=== PATIENT | female | born 1990 | race American Indian/Alaskan Native ===

== ENCOUNTER 2021-03-21 11:39 | Emergency (ER) | payer SELFPAY ==
[2021-03-21 11:56] VITALS: BP 142/76
--- NOTE | 2021-03-21 12:55 | Emergency Department Report ---
ED General Adult HPI - General Chief complaint: Skin/Abscess/Foreign Body Stated complaint: POSSIBLE SWOLLEN LYMPH NODE UNDER RIGHT ARM Time Seen by Provider: 03/21/21 12:46 Source: patient Mode of arrival: Ambulatory Limitations: No Limitations - History of Present Illness Initial comments: 30-year-old female patient presents to the emergency department with complaints of pain and swelling to the right axillary region for approximately 4 weeks. Patient states she was evaluated by a telehealth provider 2 weeks ago, at which time she was treated with Naprosyn and Doxycycline. States she took these medications with limited relief. No known history of MRSA. States she experienced similar symptoms approximately 1 year ago while she was breast-fee ding. She is not currently breast-feeding. Denies fever, chills, erythema, purulent drainage, paresthesias, numbness. Denies all other complaints at this time. - Related Data Home Medications Medication Instructions Recorded Confirmed Last Taken Pnv No.121/Iron/Folic Acid 1 tab PO DAILY 02/18/20 02/19/20 02/17/20 [ Multivitamin Tablet] Previous Rx's Medication Instructions Recorded Last Taken Type Diclofenac Sodium 50 mg PO BID #20 tablet. 03/21/21 Unknown Rx Sulfamethoxazole/Trimethoprim 1 each PO BID 7 Days tablet 03/21/21 Unknown Rx [Bactrim DS TAB] Allergies Allergy/AdvReac Type Severity Reaction Status Date / Time No Known Allergies Allergy Unverified 02/18/20 22:32 ED Review of Systems ROS: Stated complaint: POSSIBLE SWOLLEN LYMPH NODE UNDER RIGHT ARM Other details as noted in HPI Other: GENERAL: Negative for fever. CARDIOVASCULAR: Negative for chest pain. PULMONARY: Negative for shortness of breath. GASTROINTESTINAL: Negative for abdominal pain. MUSCULOSKELETAL: Negative for back pain. NEUROLOGICAL: Negative for headache. INTEGUMENTARY: Positive for painful swelling ED Past Medical Hx - Past Medical History Previous Medical History?: No Hx Hypertension: No Hx Heart Attack/AMI: No Hx Congestive Heart Failure: No Hx Diabetes: No Hx Deep Vein Thrombosis: No Hx Liver Disease: No Hx Renal Disease: No Hx Sickle Cell Disease: No Hx Seizures: No Hx Asthma: No Hx COPD: No Hx HIV: No - Surgical History Past Surgical History?: No Hx Pacemaker: No Hx Internal Defibrillator: No - Social History Smoking Status: Never Smoker - Medications Home Medications: Home Medications Medication Instructions Recorded Confirmed Last Taken Type Pnv No.121/Iron/Folic Acid 1 tab PO DAILY 02/18/20 02/19/20 02/17/20 History [ Multivitamin Tablet] Diclofenac Sodium 50 mg PO BID #20 tablet. 03/21/21 Unknown Rx Sulfamethoxazole/Trimethoprim 1 each PO BID 7 Days tablet 03/21/21 Unknown Rx [Bactrim DS TAB] ED Physical Exam - General Limitations: No Limitations - Other Other exam information: General: Awake, appropriately interactive, no acute distress. Neck: Supple. Full range of motion intact. Cardiovascular: Normal peripheral perfusion. Pulmonary: No respiratory distress. Patient is speaking normally without use of accessory muscles. Skin: Female manager change (ROZ Johnson) present. There is an edematous area measuring approximately 5 cm x 3 cm to the right lateral chest wall, just inferior to the axillary region. The area is firm and tender on palpation, non-mobile, no overlying warmth or erythema, no purulent drainage. No regional lymphadenopathy. No proximally streaking erythema. No crepitus. Neurological: No facial asymmetry. Speech is clear. Follows commands. Patient is alert and oriented. Musculoskeletal: Moves all four extremities spontaneously with normal range of motion. Psych: Cooperative. Appropriate mood and affect. ED Course Vital Signs 03/21/21 03/21/21 11:54 11:56 Temperature 99.2 F Pulse Rate 111 H Respiratory 18 Rate Blood Pressure 142/76 O2 Sat by Pulse 98 Oximetry ED Medical Decision Making - Medical Decision Making Differential diagnosis including but not limited to: abscess, cellulitis, lymphadenitis, hidradenitis suppurativa, malignancy, mastitis Patient presents to the emergency department with complaints of painful swelling right axillary region. She is afebrile. There is significant tenderness without overlying warmth or erythema. There is no fluctuance. Neurovascularly intact. Suspect mild tachycardia is attributable to pain in the absence of clinical findings to suggest systemic bacterial infection. Etiology of patient's ongoing painful swelling is unclear; patient will be discharged home with analgesics and empiric antibiotics in case of underlying infectious process. Patient was already treated with Doxycycline; she will be switched to Bactrim per current IDSA guidelines. Further imaging may be required on an outpatient basis if symptoms persist. Patient will be referred to breast specialist for close outpatient follow-up, particularly given her similar symptoms last year, which were related to . Patient expressed understanding and is agreeable to plan of care. Strict return precautions provided. History, exam, diagnostic testing, and current condition do not suggest worrisome pathology to warrant further testing, continued ED treatment, admission, or surgical evaluation at this point. Given the low probability of a significant medical illness, it would be more likely to result in harm than benefit to perform further testing at this stage. Discussed findings, presump tive diagnosis, need for follow-up and specific signs/symptoms that should prompt immediate return to the emergency department. Instructions were explained in detail to the patient in addition to giving written discharge information. Patient expressed understanding and was given the opportunity to ask questions, all of which were satisfactorily answered prior to discharge home. Critical care attestation.: If time is entered above; I have spent that time in minutes in the direct care of this critically ill patient, excluding procedure time. ED Disposition Clinical Impression: Right axillary swelling Disposition: DC-01 TO HOME OR SELFCARE Is pt being admited?: No Does the pt Need Aspirin: No Condition: Stable Instructions: Skin Abscess Additional Instructions: Take Tylenol every 4 hours as needed for pain. Take Diclofenac with food as needed for pain. Take Bactrim with food as directed. Increase your dietary intake of probiotic rich foods while taking this medicatio n. Follow-up with Dr. Kolb this week. Call today to schedule an appointment. See referral information below. Return to the emergency department immediately for new or worsening symptoms. Specifically, return to the emergency department immediately for fever, increased swelling, redness, drainage, or any other concerns. Prescriptions: Sulfamethoxazole/Trimethoprim [Bactrim DS TAB] 1 each PO BID 7 Days tablet Diclofenac Sodium 50 mg PO BID #20 tablet. Referrals: HELADIO KOLB MD [Staff Physician] - 3-5 Days Time of Disposition: 12:55
== END 2021-03-21 13:00 | disposition home or self-care (01) ==
LOC: ED 11:39
DX: R22.31 Localized swelling, mass and lump, right upper limb (principal); Z79.899 Other long term (current) drug therapy
CPT/HCPCS: 99281